=== PATIENT | female | born 1940 | race Caucasian/White ===

== ENCOUNTER 2024-05-31 10:46 | Outpatient (CLI) | payer MEDICARE, OTHER | END 2024-05-31 23:59 | disposition home or self-care (01) | LOC: MRI 10:46 | PROVIDERS: ATTEND Family Medicine Sports Medicine | DX: S83.232A Complex tear of medial meniscus, current injury, left knee, initial encounter (principal); M25.462 Effusion, left knee; M25.562 Pain in left knee; M94.262 Chondromalacia, left knee; M25.561 Pain in right knee; R60.0 Localized edema; M89.9 Disorder of bone, unspecified; X58.XXXA Exposure to other specified factors, initial encounter; Y93.9 Activity, unspecified; Y92.89 Other specified places as the place of occurrence of the external cause; Y99.8 Other external cause status | CPT/HCPCS: 73721 ==

== ENCOUNTER 2024-08-09 12:35 | Outpatient (CLI) | payer MEDICARE, OTHER ==
[2024-08-09] MEDS ORDERED: GADOTERATE MEGLUMINE 7.5 MMOL/15 ML VIAL IV ONE (16:55)
== END 2024-08-09 23:59 | disposition home or self-care (01) ==
LOC: MRI 12:35
PROVIDERS: ATTEND Family Medicine Sports Medicine
DX: S83.412A Sprain of medial collateral ligament of left knee, initial encounter (principal); S83.232A Complex tear of medial meniscus, current injury, left knee, initial encounter; M25.562 Pain in left knee; M89.9 Disorder of bone, unspecified; X58.XXXA Exposure to other specified factors, initial encounter; Y93.89 Activity, other specified; Y92.89 Other specified places as the place of occurrence of the external cause; Y99.8 Other external cause status
CPT/HCPCS: 73723; A9575